=== PATIENT | male | born 1935 | race Caucasian/White ===

== ENCOUNTER 2017-05-24 10:49 | Emergency (ER) | payer OTHER ==
[~2017-05-24] VITALS: Ht 182.9 cm; Wt 76.0 kg
[2017-05-24 10:59] VITALS: Ht 182.9 cm; Wt 76.0 kg
--- NOTE | 2017-05-24 11:05 | ERA ---
ER Documentation Chief Complaint Date/Time DATE: 05/24/17 TIME: 11:05 Chief Complaint chest discomfort HPI The patient is a 81-year-old male, presenting to the ER because he complains of funny feeling on the chest 9:30 AM. He took 2 nitroglycerin sublingual without relief. He denies chest pain, denies palpitation. He called 911. When EMS arrived, he was in SVT at 188, he was treated with adenosine 6 mg that aborted the SVT. He denies similar symptoms previously, dizziness, abdominal pain, vomiting, dysuria, diarrhea. He does not smoke nor drink Past Medical history: CAD, HTN Past surgical history: Appendectomy ROS All systems reviewed and are negative except as per history of present illness. Allergies Allergies: Coded Allergies: No Known Allergy (Unverified , 05/24/17) Physical Exam Vitals Vital Signs Date Time Temp Pulse Resp B/P Pulse Ox O2 Delivery O2 Flow Rate FiO2 05/24/17 13:48 77 20 98/71 99 Room Air 05/24/17 12:46 98.7 74 20 144/74 99 Room Air 05/24/17 10:59 97.4 84 16 144/77 99 Physical Exam Const: No acute distress. Head: Atraumatic. Eyes: Normal Conjunctiva. ENT: Normal External Ears, Nose and Mouth. Neck: Full range of motion. No meningismus. Resp: Clear to auscultation bilaterally. Cardio: Regular rate and rhythm. Abd: Soft, non distended, normal bowel sounds, non tender. Skin: No petechiae or rashes. Back: No midline or flank tenderness. Ext: No cyanosis, or edema. Neur: Awake and alert. No focal deficit Psych: Normal Mood and Affect. Result Diagram: 05/24/17 1100 05/24/17 1100 Results 24 hrs Laboratory Tests Test 05/24/17 11:00 White Blood Count 7.410^3/ul Red Blood Count 4.6210^6/ul Hemoglobin 15.2g/dl Hematocrit 44.5% Mean Corpuscular Volume 96.3fl Mean Corpuscular Hemoglobin 32.9pg Mean Corpuscular Hemoglobin Concent 34.2g/dl Red Cell Distribution Width 13.4% Platelet Count 32323^3/UL Mean Platelet Volume 9.9fl Neutrophils % 70.1% Lymphocytes % 13.9% Monocytes % 6.6% Eosinophils % 7.5% Basophils % 0.8% Nucleated Red Blood Cells % 0.0/100WBC Neutrophils # 5.210^3/ul Lymphocytes # 1.010^3/ul Monocytes # 0.510^3/ul Eosinophils # 0.610^3/ul Basophils # 0.110^3/ul Nucleated Red Blood Cells # 0.010^3/ul Prothrombin Time 13.1Sec Prothrombin Time Ratio 1.0 INR International Normalized Ratio 0.99 Activated Partial Thromboplast Time 30.4Sec Sodium Level 142mmol/L Potassium Level 4.3mmol/L Chloride Level 106mmol/L Carbon Dioxide Level 22mmol/L Anion Gap 18 Blood Urea Nitrogen 15mg/dl Creatinine 1.65mg/dl Glucose Level 122mg/dl Calcium Level 9.7mg/dl Magnesium Level 1.9mg/dl Troponin I < 0.012ng/ml Thyroid Stimulating Hormone (TSH) 0.925MIU/L Procedures/[place] [id number] Radiology Main Line: [phone] DIAGNOSTIC IMAGING REPORT Patient: JACOB CA : 1935 Age: 81 Sex: M MR #: [id number] DOS: 05/24/17 1115 Ordering MD: ALISTAIR RODRIGUEZ MD Location: E/R Room/Bed: PROCEDURE: XR Chest. CLINICAL INDICATION: Chest pain TECHNIQUE: Single frontal view of the chest was obtained. COMPARISON: None FINDINGS: The heart is within normal limits. The thoracic aorta is calcified. The lungs are clear. There is no pleural effusion or pneumothorax. RPTAT: AA IMPRESSION: No acute disease. Calcified aorta consistent with atherosclerotic disease. .Law Franco MD, MD Date Time Electronically viewed and signed by .Law Franco MD, on 05/24/2017 12: 11 .S/ CC: ALISTAIR RODRIGUEZ MD EKG: At 10:49 AM read by emergency physician Rate/Rhythm: Normal Sinus Rhythm 84 beats/min QRS, ST, T-waves: No ST elevation, no T inversion, PSVC, septal Q waves Impression: Abnormal EKG EKG: At 11:26 AM read by emergency physician Rate/Rhythm: Normal Sinus Rhythm 82 beats/min QRS, ST, T-waves: No ST elevation, no T inversion, septal Q waves Impression: Abnormal EKG TSH pending MEDICAL MAKING DECISION: The patient is a 81-year-old male, presenting with acute SVT. He has been stable in the emergency department but requires hospitalization for further evaluation. He was treated with normal saline 500 mL for clinical dehydration The differential diagnoses considered include but are not limited to acute coronary syndrome, acute myocardial infarction, pericarditis, pulmonary embolism , aortic dissection, pneumonia, pleural effusion, pneumothorax, GERD, chest wall pain. SSS. Departure Diagnosis: Primary Impression: SVT (supraventricular tachycardia) Additional Impression: Renal insufficiency Condition: Stable Comments I discussed the findings with the patient. I discussed the patient with his physician Dr. Nixon at 12:55 pm from [facility] who was made aware of the lab, the treatment, the patient condition. The patient is transferred via ambulance. Case # [id number] ALISTAIR RODRIGUEZ MD May 24, 2017 11:05
[2017-05-24 11:30] LABS: BASOPHIL # 0.1 10^3/ul (0.0-0.1); BASOPHILS % 0.8 % (0.0-2.0); EOSINOPHILS # 0.6 10^3/ul (0.0-0.5); EOSINOPHILS % 7.5 % (0.0-7.0); HEMATOCRIT 44.5 % (42.0-52.0); HEMOGLOBIN 15.2 g/dl (14.0-18.0); LYMPHOCYTES % 13.9 % (15.0-51.0); MEAN CORPUSCULAR HEMOGLOBIN 32.9 pg (29.0-33.0); MEAN CORPUSCULAR HGB CONC 34.2 g/dl (32.0-37.0); MEAN CORPUSCULAR VOLUME 96.3 fl (82.0-101.0); MEAN PLATELET VOLUME 9.9 fl (7.4-10.4); MONOCYTE # 0.5 10^3/ul (0.3-0.9); MONOCYTES % 6.6 % (0.0-11.0); NEUTROPHIL # 5.2 10^3/ul (1.6-7.5); NEUTROPHILS % 70.1 % (39.0-77.0); PLATELET COUNT 270 10^3/UL (140-415); RED BLOOD COUNT 4.62 10^6/ul (4.70-6.10); RED CELL DISTRIBUTION WIDTH 13.4 % (11.5-14.5); WHITE BLOOD COUNT 7.4 10^3/ul (4.8-10.8)
[2017-05-24 11:33] LABS: INR 0.99; PROTIME 13.1 Sec (12.2-14.2)
[2017-05-24 11:34] LABS: PARTIAL THROMBOPLASTIN TIME 30.4 Sec (25.0-35.0)
[2017-05-24 11:57] LABS: ANION GAP 18 (8-16); BLOOD UREA NITROGEN 15 mg/dl (7-20); CALCIUM 9.7 mg/dl (8.4-10.2); CARBON DIOXIDE 22 mmol/L (21-31); CHLORIDE 106 mmol/L (97-110); CREATININE 1.65 mg/dl (0.61-1.24); GLUCOSE 122 mg/dl (70-220); MAGNESIUM 1.9 mg/dl (1.7-2.5); POTASSIUM 4.3 mmol/L (3.5-5.1); SODIUM 142 mmol/L (135-144)
--- NOTE | 2017-05-24 12:11 | RADRPT ---
PROCEDURE: XR Chest. CLINICAL INDICATION: Chest pain TECHNIQUE: Single frontal view of the chest was obtained. COMPARISON: None FINDINGS: The heart is within normal limits. The thoracic aorta is calcified. The lungs are clear. There is no pleural effusion or pneumothorax. RPTAT: AA IMPRESSION: No acute disease. Calcified aorta consistent with atherosclerotic disease. .Law Franco MD, MD Date Time Electronically viewed and signed by .Law Franco MD, on 05/24/2017 12:11 .S/
[2017-05-24 12:15] LABS: TROPONIN-I < 0.012 ng/ml (0.00-0.12)
[2017-05-24 12:53] LABS: THYROID STIMULATING HORMONE 0.925 MIU/L (0.465-4.680)
[2017-05-24 15:07] VITALS: BP 125/68; PULSE 77; RESP 18; TEMP 98.5
[2017-05-24] MEDS ORDERED: SOD CHLORIDE 0.9% 500 ML IV ONE (15:30)
== END 2017-05-24 15:19 | disposition short-term general hospital (02) ==
LOC: E/R 10:49
DX: I47.1 Supraventricular tachycardia (principal); I25.10 Atherosclerotic heart disease of native coronary artery without angina pectoris; I10 Essential (primary) hypertension; N28.9 Disorder of kidney and ureter, unspecified
CPT/HCPCS: 36415; 71010; 80048; 83735; 84443; 84484; 85025; 85610; 85730; J7040